=== PATIENT | female | born 1960 | race Two or more races ===

== ENCOUNTER 2021-01-02 01:55 | Emergency (ER) | payer MEDICAID, OTHER | END 2021-01-02 04:29 | disposition left against medical advice (07) | LOC: EDBD 01:55 → ER 01:59 | DX: R06.02 Shortness of breath (principal); Z53.21 Procedure and treatment not carried out due to patient leaving prior to being seen by health care provider ==

== ENCOUNTER 2021-01-15 09:33 | Emergency (ER) | payer MEDICAID, OTHER ==
[~2021-01-15] VITALS: Ht 160 cm; Wt 63.5 kg
[2021-01-15 09:39] VITALS: BP 122/77
== END 2021-01-15 09:44 | disposition left against medical advice (07) ==
LOC: EDBD 09:33 → ER 09:33 → MERGE 09:33 → ER 09:44
DX: J44.1 Chronic obstructive pulmonary disease with (acute) exacerbation (principal); F41.9 Anxiety disorder, unspecified

== ENCOUNTER 2021-11-09 14:00 | Inpatient (IN) | payer MEDICAID ==
[~2021-11-09] VITALS: Ht 162.6 cm; Wt 62.9 kg
[2021-11-09] MEDS: ASPirin 325 MG TAB PO ONE ×2 (14:41→14:47)
[2021-11-09] MEDS ORDERED: ALBUTEROL SULF 2.5 MG/0.5ML(0.5%) NEB SOLN NEB ONE (14:45)
[2021-11-09] MEDS ORDERED: IPRATROPIUM BROM 0.5 MG/2.5ML INH SOL NEB ONE (14:45)
[2021-11-09] MEDS ORDERED: methylPREDNISolone SOD SUCC 125 MG/2 ML VL IV ONE (14:45)
[2021-11-09] MEDS ORDERED: LORazepam 2MG/ML-1ML VIAL IV ONE ×2 (14:45→17:15)
[2021-11-09 15:54] LABS: Basophils # (auto) 0.1 10 ^3/uL (0-0.2); Eosinophils # (auto) 0.1 10 ^3/uL (0-0.8); Eosinophils % (auto) 0.8 % (0.0-7.0); Hematocrit 37.6 % (36.0-46.0); Hemoglobin 12.8 g/dL (12.2-16.2); Lymphocytes # (auto) 1.8 10 ^3/uL (0.4-5.4); Lymphocytes % (auto) 26.8 % (10.0-50.0); Mean Corpuscular Hemoglobin 32.6 pg (28.0-32.0); Mean Corpuscular Hgb Conc. 34.1 g/dL (32.0-36.0); Mean Corpuscular Volume 95.7 fL (80.0-100.0); Monocytes # (auto) 0.6 10 ^3/uL (0-1.3); Monocytes % (auto) 8.4 % (0.0-12.0); Neutrophils # (auto) 4.2 10 ^3/uL (1.6-8.6); Nucleated Red Blood Cells % 0.1 %; Red Blood Cells 3.93 10^6/uL (4.0-5.20); Red Cell Distribution Width 13.7 % (11.8-14.3); White Blood Cell 6.7 10^3/uL (4.4-10.8)
[2021-11-09] MEDS ORDERED: FUROSEMIDE 20 MG/2 ML VIAL IV ONE (16:15)
[2021-11-09 16:17] LABS: Albumin 2.7 g/dL (3.4-5.0); BUN/Creatinine Ratio 11.4; Calcium 8.4 mg/dL (8.5-10.1); Potassium 3.1 mmol/L (3.5-5.1)
[2021-11-09 16:20] LABS: Bilirubin, Total 0.4 mg/dL (0.2-1.0); Total Protein 6.9 g/dL (6.4-8.2)
[2021-11-09] MEDS ORDERED: FUROSEMIDE 100 MG/10ML VIAL IV ONE (17:00)
[2021-11-09] MEDS ORDERED: FUROSEMIDE INJECTION 10 ML ONE (17:00)
[2021-11-09 17:44] LABS: Magnesium 2.2 mg/dL (1.6-2.6)
[2021-11-09] MEDS ORDERED: dilTIAZem 25 MG/5 ML VIAL IV ONE (18:00)
[2021-11-09] MEDS ORDERED: NITROGLYCERIN 0.4 MG SL TAB SL PRN ×2 (19:00→22:00)
[2021-11-09] MEDS ORDERED: MORPHINE SULFATE INJ 2 MG/ml SYRG IV PRN ×2 (19:00→22:00)
[2021-11-09] MEDS ORDERED: AMIODARONE 450mg/250ml AE 250 ML IV SCH (19:00)
[2021-11-09] MEDS ORDERED: AMIODARONE HCL 150 MG in D5W 5% 100 ML IV ONE (19:00)
[2021-11-09] MEDS ORDERED: AMIODARONE HCL (50 MG/ ML) 3 ML VIAL IV ONE (19:56)
[2021-11-09] MEDS ORDERED: METOPROLOL TARTRATE 1MG/1ML-5ML VIAL IV PRN (21:00)
[2021-11-09] MEDS ORDERED: POTASSIUM CHL 20 Meq TABLET PO ONE (21:15)
[2021-11-09] MEDS ORDERED: DOCUSATE SOD 100 MG CAP PO PRN (22:00)
[2021-11-09] MEDS ORDERED: ONDANSETRON HCL 4 MG/2 ML VIAL IV PRN (22:00)
[2021-11-09] MEDS ORDERED: ACETAMINOPHEN 325 MG TAB PO PRN (22:00)
[2021-11-09] MEDS ORDERED: PANTOPRAZOLE 40 MG/10 ML VIAL INJ IV ONE (22:00)
[2021-11-09] MEDS ORDERED: hydrALAZINE HCL 20 MG/ML VL IV PRN (22:00)
[2021-11-10 00:03] LABS: Phosphorus 2.8 mg/dL (2.5-4.90)
[2021-11-10] MEDS: HYDROcodone-ACET 5/325MG TAB PO PRN ×3 (00:03→13:28)
[2021-11-10 00:40] LABS: INR 1.14 (0.9-1.15); Partial Thromboplastin Time 29.7 sec (23.6-33.0)
[2021-11-10] MEDS: AMIODARONE HCL 200 MG TAB PO SCH ×3 (06:00→21:45)
[2021-11-10] MEDS ORDERED: BUDESONIDE (INHALATION) 0.5 MG/2 ML NEB NEB ONE (07:30)
[2021-11-10] MEDS ORDERED: POTASSIUM CHLORIDE 60 MEQ, LIDOCAINE 1% (LOCAL ANESTH.) 6 ML in SODIUM CHL 0.9% 500 ML IV ONE (07:30)
[2021-11-10] MEDS ORDERED: IPRATROPIUM BROM 0.5 MG/2.5ML INH SOL NEB ONE (07:30)
[2021-11-10 07:53] LABS: Basophils # (auto) 0 10 ^3/uL (0-0.2); Basophils % (auto) 0.2 % (0.0-2.0); Eosinophils # (auto) 0 10 ^3/uL (0-0.8); Hematocrit 38.8 % (36.0-46.0); Lymphocytes # (auto) 0.8 10 ^3/uL (0.4-5.4); Lymphocytes % (auto) 4.9 % (10.0-50.0); Mean Corpuscular Hgb Conc. 33.5 g/dL (32.0-36.0); Mean Corpuscular Volume 95.7 fL (80.0-100.0); Monocytes # (auto) 0.4 10 ^3/uL (0-1.3); Monocytes % (auto) 2.3 % (0.0-12.0); Neutrophils % (auto) 92.6 % (37.0-80.0); Red Blood Cells 4.05 10^6/uL (4.0-5.20); Red Cell Distribution Width 13.6 % (11.8-14.3); White Blood Cell 17.3 10^3/uL (4.4-10.8)
[2021-11-10 08:10] LABS: INR 1.08 (0.9-1.15); Partial Thromboplastin Time 28.6 sec (23.6-33.0)
[2021-11-10 08:12] LABS: Potassium 4.1 mmol/L (3.5-5.1)
[2021-11-10 08:27] LABS: Albumin 2.9 g/dL (3.4-5.0); BUN/Creatinine Ratio 18.5; Bilirubin, Total 0.4 mg/dL (0.2-1.0); CRP High Sensitivity 1.25 mg/dL (< 0.3); Calcium 8.4 mg/dL (8.5-10.1); Magnesium 1.9 mg/dL (1.6-2.6); Phosphorus 3.6 mg/dL (2.5-4.90); Total Protein 7.4 g/dL (6.4-8.2); Uric Acid 6.1 mg/dL (2.6-6.0)
[2021-11-10 08:30] VITALS: BP 124/70
[2021-11-10] MEDS: AZITHROMYCIN 500MG/ 250ML 250 ML IV SCH ×2 (09:34→13:27)
[2021-11-10] MEDS ORDERED: BACLOFEN 10 MG TAB PO PRN (09:45)
[2021-11-10] MEDS: MORPHINE SULFATE INJ 2 MG/ml SYRG IV PRN ×2 (09:49→21:03)
[2021-11-10] MEDS ORDERED: IPRATROPIUM BROM 0.5 MG/2.5ML INH SOL NEB SCH (10:00)
[2021-11-10] MEDS ORDERED: POTASSIUM CHL 20 Meq TABLET PO SCH (10:00)
[2021-11-10] MEDS ORDERED: ENOXAPARIN SOD 40 MG/0.4 ML SYRINGE SC SCH (10:00)
[2021-11-10] MEDS: PANTOPRAZOLE 40 MG/10 ML VIAL INJ IV SCH (10:02)
[2021-11-10] MEDS: ASPirin 81 mg TAB PO SCH (10:05)
[2021-11-10] MEDS: APIXABAN 5 MG TAB PO SCH ×2 (10:06→21:45)
[2021-11-10] MEDS: BENAZEPRIL HCL 10 MG TAB PO SCH (10:06)
[2021-11-10] MEDS: CARVEDILOL 3.125 MG TAB PO SCH ×2 (10:06→21:44)
[2021-11-10] MEDS ORDERED: PROMETHAZINE-DM 5 ML ORAL SYRUP PO PRN (10:45)
[2021-11-10] MEDS ORDERED: cefTRIAXone 1GM/50ML D5W 50 ML IV ONE (10:45)
[2021-11-10 12:00] VITALS: BP 125/67
[2021-11-10] MEDS: IPRATROPIUM BROM 0.5 MG/2.5ML INH SOL NEB SCH ×2 (12:48→19:22)
[2021-11-10] MEDS: LEVALBUTEROL HCL 1.25 MG/3 ML NEB NEB SCH ×2 (12:48→19:22)
[2021-11-10 13:00] VITALS: BP 100/70
[2021-11-10] MEDS: methylPREDNISolone SOD SUCC 40 MG/ML VL IV SCH ×2 (13:28→21:43)
[2021-11-10] MEDS ORDERED: IOHEXOL 350 MG/ML 100ML IJ ONE ×2 (14:29→14:47)
[2021-11-10 17:00] VITALS: BP 100/70
[2021-11-10] MEDS: FUROSEMIDE 20 MG/2 ML VIAL IV SCH (18:14)
[2021-11-10 21:27] LABS: Urine Bacteria NONE SEEN /hpf (None Seen); Urine Blood Negative /uL (Negative); Urine Specific Gravity 1.038 (1.001-1.035); Urine WBC <1 /hpf (0 - 5)
[2021-11-10 21:41] LABS: Alcohol, Urine < 3.0 mg/dL (0-10); Amphetamine Screen, Urine NEGATIVE (NEGATIVE); Barbiturate Scree,Urine NEGATIVE (NEGATIVE); Benzodiazephine Screen, Urine NEGATIVE (NEGATIVE); Cannabinoid Screen, Urine NEGATIVE (NEGATIVE); Cocaine Screen, Urine POSITIVE (NEGATIVE); Opiate Scree,Urine POSITIVE (NEGATIVE); Phencyclidine Screen, Urine NEGATIVE (NEGATIVE)
[2021-11-10 21:42] LABS: Alcohol, Urine < 3.0 mg/dL (0-10); Amphetamine Screen, Urine NEGATIVE (NEGATIVE); Barbiturate Scree,Urine NEGATIVE (NEGATIVE); Benzodiazephine Screen, Urine NEGATIVE (NEGATIVE); Cannabinoid Screen, Urine NEGATIVE (NEGATIVE); Cocaine Screen, Urine POSITIVE (NEGATIVE); Opiate Scree,Urine POSITIVE (NEGATIVE); Phencyclidine Screen, Urine NEGATIVE (NEGATIVE); Protein, Urine 7.6 mg/dL (0.0-11.9)
[2021-11-10] MEDS: ATORVASTATIN 20 MG TAB PO SCH (21:46)
[2021-11-10 22:00] VITALS: BP 98/69
[2021-11-10] MEDS ORDERED: ATORVASTATIN 20 MG TAB PO SCH ×2 (22:00)
[2021-11-11] VITALS (8 sets, daily range): BP systolic 90–127; BP diastolic 43–80
[2021-11-11] MEDS: HYDROcodone-ACET 5/325MG TAB PO PRN ×3 (04:38→21:13)
[2021-11-11] MEDS: FUROSEMIDE 20 MG/2 ML VIAL IV SCH ×2 (06:00→17:53)
[2021-11-11 06:25] LABS: Basophils # (auto) 0 10 ^3/uL (0-0.2); Basophils % (auto) 0.1 % (0.0-2.0); Eosinophils # (auto) 0 10 ^3/uL (0-0.8); Hematocrit 37.5 % (36.0-46.0); Hemoglobin 12.5 g/dL (12.2-16.2); Lymphocytes # (auto) 1.2 10 ^3/uL (0.4-5.4); Lymphocytes % (auto) 6.8 % (10.0-50.0); Mean Corpuscular Hemoglobin 32.2 pg (28.0-32.0); Mean Corpuscular Hgb Conc. 33.5 g/dL (32.0-36.0); Mean Corpuscular Volume 96.1 fL (80.0-100.0); Monocytes # (auto) 0.5 10 ^3/uL (0-1.3); Monocytes % (auto) 2.8 % (0.0-12.0); Neutrophils # (auto) 16.1 10 ^3/uL (1.6-8.6); Neutrophils % (auto) 90.3 % (37.0-80.0); Nucleated Red Blood Cells % 0.1 %; Red Cell Distribution Width 13.7 % (11.8-14.3); White Blood Cell 17.8 10^3/uL (4.4-10.8)
[2021-11-11] MEDS: methylPREDNISolone SOD SUCC 40 MG/ML VL IV SCH ×2 (06:33→14:06)
[2021-11-11 06:40] LABS: Albumin 2.8 g/dL (3.4-5.0); Calcium 8.5 mg/dL (8.5-10.1); Magnesium 2.3 mg/dL (1.6-2.6)
[2021-11-11 06:41] LABS: INR 1.1 (0.9-1.15)
[2021-11-11 06:53] LABS: BUN/Creatinine Ratio 22.2; Bilirubin, Total 0.3 mg/dL (0.2-1.0); Phosphorus 3.2 mg/dL (2.5-4.90)
[2021-11-11] MEDS: IPRATROPIUM BROM 0.5 MG/2.5ML INH SOL NEB SCH ×5 (07:07→18:57)
[2021-11-11] MEDS: LEVALBUTEROL HCL 1.25 MG/3 ML NEB NEB SCH ×5 (07:07→18:57)
[2021-11-11] MEDS ORDERED: cefTRIAXone 1GM/50ML D5W 50 ML IV SCH (09:00)
[2021-11-11] MEDS: AMIODARONE HCL 200 MG TAB PO SCH ×2 (09:36→22:38)
[2021-11-11] MEDS: ASPirin 81 mg TAB PO SCH (09:36)
[2021-11-11] MEDS: PANTOPRAZOLE 40 MG/10 ML VIAL INJ IV SCH (09:36)
[2021-11-11] MEDS: BENAZEPRIL HCL 10 MG TAB PO SCH (09:37)
[2021-11-11] MEDS: CARVEDILOL 3.125 MG TAB PO SCH ×2 (09:37→22:38)
[2021-11-11] MEDS: ENOXAPARIN SOD 80 MG/0.8ML SYRINGE SC SCH ×2 (09:38→22:38)
[2021-11-11] MEDS: MORPHINE SULFATE INJ 2 MG/ml SYRG IV PRN ×3 (09:55→23:23)
[2021-11-11] MEDS ORDERED: DOBUTamine 1000MCG/ML 250 ML IV SCH (10:00)
[2021-11-11] MEDS ORDERED: BENAZEPRIL HCL 10 MG TAB PO SCH (10:00)
[2021-11-11] MEDS: AZITHROMYCIN 500MG/ 250ML 250 ML IV SCH (10:37)
[2021-11-11] MEDS ORDERED: CYCLOBENZAPRINE HCL 10 MG TAB PO ONE (11:30)
[2021-11-11] MEDS ORDERED: CYCLOBENZAPRINE HCL 10 MG TAB PO PRN (16:45)
[2021-11-11] MEDS ORDERED: CYCLOBENZAPRINE HCL 10 MG TAB PO SCH (22:00)
[2021-11-11] MEDS: ATORVASTATIN 20 MG TAB PO SCH (22:38)
[2021-11-12] MEDS: LEVALBUTEROL HCL 1.25 MG/3 ML NEB NEB SCH
[2021-11-12] MEDS: IPRATROPIUM BROM 0.5 MG/2.5ML INH SOL NEB SCH
== END 2021-11-12 02:30 | disposition short-term general hospital (02) | DRG 720 ==
LOC: ER 14:00 → EDBD 14:00 → EDUNIT# 14:00 → TELE 18:49 → TELE-EAST 23:34 → TELE 23:58 → TELE-EAST 11-10 11:23
PROVIDERS: ADMIT Hospitalist; ATTEND Internal Medicine
DX: A41.9 Sepsis, unspecified organism (principal); J96.20 Acute and chronic respiratory failure, unspecified whether with hypoxia or hypercapnia; I50.41 Acute combined systolic (congestive) and diastolic (congestive) heart failure; I42.9 Cardiomyopathy, unspecified; J18.9 Pneumonia, unspecified organism; E88.09 Other disorders of plasma-protein metabolism, not elsewhere classified; I47.1 Supraventricular tachycardia; I50.82 Biventricular heart failure; J84.10 Pulmonary fibrosis, unspecified; J44.0 Chronic obstructive pulmonary disease with (acute) lower respiratory infection; J44.1 Chronic obstructive pulmonary disease with (acute) exacerbation; G43.909 Migraine, unspecified, not intractable, without status migrainosus; I48.0 Paroxysmal atrial fibrillation; D64.9 Anemia, unspecified; E78.5 Hyperlipidemia, unspecified; E87.6 Hypokalemia; F11.20 Opioid dependence, uncomplicated; F41.1 Generalized anxiety disorder; G89.4 Chronic pain syndrome; F17.210 Nicotine dependence, cigarettes, uncomplicated; I34.0 Nonrheumatic mitral (valve) insufficiency; Z98.51 Tubal ligation status
CPT/HCPCS: 36415; 36600; 71045; 71275; 80053; 80061; 80307; 81001; 82550; 82728; 82805; 83036; 83615; 83690; 83735; 83880; 84100; 84156; 84443; 84484; 84550; 85025; 85379; 85610; 85652; 85730; 86141; 87040; 87086; 93005; 93306; 94640; 96365; 96366; 96367; 96375; 96376; 99291; C9113; G0378; J0696; J7060